=== PATIENT | male | born 1995 | race African-American/Black ===

== ENCOUNTER 2021-08-01 09:13 | Emergency (ER) | payer OTHER, SELFPAY ==
--- NOTE | 2021-08-01 09:51 | ED.HEATRA ---
HPI - Head Injury General Chief complaint: Wound/Laceration Stated complaint: head Inj Time Seen by Provider: 08/01/21 09:48 Source: patient Mode of arrival: ambulatory Limitations: no limitations History of Present Illness HPI Narrative: 25-year-old male presents to the ER for evaluation of a head injury. He was playing flag football with his friends and collided with another player. He reports they hit heads and he sustained a laceration right below his right eyebrow. He did not lose consciousness. He had immediate pain and bleeding to the area. Bleeding was controlled with direct pressure. He is not on any anticoagulation. He denies any headache or neck and pain right now. He is unsure when his last tetanus was. Denies nausea, confusion, lethargy. MD Complaint: head injury Onset (ago): minute(s) (30) Mechanism of Injury: sports related injury Place: outdoors Loss of Consciousness: no Location of injury: face Severity: mild Severity scale (1-10): 4 Quality: aching Radiation: none Other Injuries: laceration Associated symptoms: denies other symptoms Related Data Allergies Allergy/AdvReac Type Severity Reaction Status Date / Time amoxicillin Allergy Anaphylaxis Verified 08/01/21 09:54 Penicillins [PCN] Allergy Anaphylaxis Verified 08/01/21 09:54 Review of Systems Review of Systems: Constitutional: No Fever, No Chills Eyes: No Eye Pain, + Swelling, No Redness Cardiovascular: No Chest Pain, No SOB Gastrointestinal: No Nausea, No Vomiting, No abdominal Pain Musculoskeletal: No joint pain, No Myalgias Skin:+Skin Lesions, No rash Neuro: No Weakness, No Numbness, No Dizziness, No Headache Heme/Lymph: No Bruising PMFSH Social History Social History Advance Directives: No Advance Directives Information Provided: No Physical Exam Vital Signs: Vital Signs: Last Vital Signs Temp 98.2 F 08/01/21 09:55 Pulse 87 08/01/21 09:55 Resp 18 08/01/21 09:55 BP 113/63 08/01/21 09:55 Pulse Ox 96 08/01/21 09:55 BMI result Body Mass Index 31.4 Appearance: Alert. Oriented X3. No acute distress. HEENT: Inspection of the right eye reveals a 2.5 cm linear laceration below right eyebrow. Minimal swelling and tenderness. Normal extraocular movements and pupillary response. Mild oozing from the laceration. Deep structures appear to be intact. CVS: Normal heart rate and rhythm. Pulses normal. Respiratory: No respiratory distress. Skin: Skin warm and dry. Normal skin color. Normal skin turgor. No rashes. Extremities: atraumatic x4 Neuro: Oriented X 3. No motor deficit. No sensory deficit. Course Course Course Narrative: 25-year-old male presents to the ER for evaluation of a laceration above his right eye after he collided heads with another player. No LOC. No signs or symptoms of concussion at this time. Wound is amenable to suturing closed. Will give Tdap. Reevaluation(s) Reevaluation #1: Five sutures used to close the wound with good wound margin approximation. Wound care discussed with patient. He will return in 5-7 days for suture removal. Procedures Laceration Laceration 1: Site: face Side (If applicable): right Size (cm): 2.5 Description: linear Depth: simple, single layer Local Anesthetic: lidocaine 2% Amount of anesthesia used (mL): 2 Pre-repair: wound explored, irrigated extensively and deep structures intact Skin layer closed with: other (prolene) Size (cm): 6-0 Number of sutures: 5 Critical Care Time Critical Care Time Critical Care Time: No Discharge Plan Discharge Clinical Impression: Facial laceration Patient Disposition: Home, Self-Care Instructions: Laceration (DC) Additional Instructions: You will need your stitches out in 5-7 days. See you doctor for this or come back to the ER and we will remove them. Do not get wet for 24 hours, after that you can briefly wash with soap and water then pat dry. Use bacitracin 2x per day. Keep wound clean and covered. Do not submerge in water, no swimming. If you develop signs of infection including increased pain, swelling, redness or drainage of pus come back to the ER for further evaluation.
[2021-08-01 09:55] VITALS: BP 113/63; PULSE 87; RESP 18; TEMP 36.8; O2SAT 96; BMI 31.4
[2021-08-01] MEDS: Lidocaine HCl 2 % MPF 5 ML VIAL SUBCUT (10:52)
[2021-08-01] MEDS: Diphth,Pertus(ACell),Tet Adult 0.5 ML SYRINGE IM (10:53)
== END 2021-08-01 11:00 | disposition home or self-care (01) ==
PROVIDERS: Emergency Provider Emergency Medicine Emergency Medical Services
DX: S00.211A Abrasion of right eyelid and periocular area, initial encounter (principal); R51.9 Headache, unspecified; W26.9XXA Contact with unspecified sharp object(s), initial encounter; Y93.9 Activity, unspecified; Y92.9 Unspecified place or not applicable; Y99.9 Unspecified external cause status
CPT/HCPCS: 12011; 90471; 90715; 99283; 99284

== ENCOUNTER 2021-08-07 09:33 | Emergency (ER) | payer OTHER, SELFPAY ==
[2021-08-07 10:02] VITALS: BP 123/66; PULSE 57; RESP 16; TEMP 35.9; O2SAT 97; BMI 31.8
--- NOTE | 2021-08-07 11:25 | ED_ITS ---
HPI - General Adult General Chief complaint: General Medical Stated complaint: suture removal Time Seen by Provider: 08/07/21 11:22 Source: patient Mode of arrival: ambulatory Limitations: no limitations History of Present Illness HPI narrative: 25 yo male here for suture removal. Patient had sutures placed to right eyebrow 6 days ago. No complaints. Related Data Allergies Allergy/AdvReac Type Severity Reaction Status Date / Time amoxicillin Allergy Anaphylaxis Verified 08/01/21 09:54 Penicillins [PCN] Allergy Anaphylaxis Verified 08/01/21 09:54 Review of Systems Constitutional: Constitutional: Denies fever(s) Eyes: Eyes: Denies eye discharge ENT: Denies nasal discharge and Denies sore throat Cardiovascular: Cardiovascular: Denies chest pain and Denies dyspnea Respiratory: Respiratory: Denies cough and Denies dyspnea Gastrointestinal: Gastrointestinal: Denies abdominal pain, Denies constip ation, Denies diarrhea, Denies nausea and Denies vomiting Genitourinary: Comments: no urinary changes Musculoskeletal: Musculoskeletal: Denies arthralgias, Denies joint swelling, Denies numbness and Denies tingling Integumentary/Breasts: Skin/Breast: Denies rash Neurologic: Denies numbness and Denies tingling PMFSH Past Medical History Attestation statement: The following information was validated with the patient. Source: old records reviewed and nursing notes reviewed Social History Social History Advance Directives: No Advance Directives Information Provided: No Physical Exam ED Vital Signs: Vital Signs - 24 hr 08/07/21 10:02 Temperature 96.6 F L Pulse Rate 57 Respiratory Rate 16 Blood Pressure 123/66 Pulse Oximetry 97 BMI result Body Mass Index 31.8 Const General: cooperative, healthy appearing, comfortable and no acute distress Orientation/consciousness: patient oriented x3 Limitations: no limitations HENMT Head: Yes normal to inspection Head images: 1. sutures present to right eyebrow. No fluctuance, drainage, redness Eyes General: appearance normal, both eyes and all related structures Neck Neck: Yes normal visual inspection Chest Chest palpation & inspection: normal inspection of the chest Resp Effort & Inspection: normal respiratory effort Back/Spine/Pelvis Thoracic/Lumbar Spine: thoracic and lumbar spine normal to inspection Skin General skin exam: no rashes or lesions noted Neuro General: patient oriented x3 and moves all extremities Course Course Course Narrative: See procedure note. Wound cleansed. No evidence of infection. Procedures Procedure Narrative Procedure Narrative: 5 sutures removed from right eyebrow. Edges approximated. NO redness, warmth, fevers, drainage Medical Decision Making Medical Records Medical records reviewed: Yes I reviewed the patient's medical records. Lab Data Lab results reviewed: Yes I reviewed the patient's lab results. Discharge Plan Discharge Clinical Impression: Visit for suture removal Patient Disposition: Home, Self-Care Instructions: Stitches Removal (ED) Referrals: Physician,None [Primary Care Provider] - 10 days (as needed) Interventions: ED Discharge Assessment Last Done: 08/07/21 11:25 Discharge Date/Time: 08/07/21 11:26
== END 2021-08-07 11:26 | disposition home or self-care (01) ==
PROVIDERS: Emergency Provider Emergency Medicine
DX: Z48.02 Encounter for removal of sutures (principal); S01.111D Laceration without foreign body of right eyelid and periocular area, subsequent encounter; X58.XXXD Exposure to other specified factors, subsequent encounter
CPT/HCPCS: 99282; 99283